=== PATIENT | female | born 1990 | race Caucasian/White ===

== ENCOUNTER 2017-11-17 23:46 | Emergency (ER) | payer OTHER ==
[2017-11-17 23:57] VITALS: RESP 18
--- NOTE | 2017-11-18 00:54 | ED PDOC ---
HPI: Female Pain Time Seen by Provider: 11/18/17 00:36 Chief Complaint (Nursing): Female Genitourinary Chief Complaint (Provider): ; vaginal spotting History Per: Patient, Family History/Exam Limitations: no limitations Onset/Duration Of Symptoms: Hrs (3) Quality Of Discomfort: Cramping, "Pain" Additional Complaint(s): 27 y/o female, approximately 6 weeks gestation, presents for evaluation of vaginal spotting x 3 hours. Denies fever, nausea/vomiting, chest pain, shortness of breath, palpitations, abdominal pain, changes in bowel movements, urinary symptoms. Abnormal Vaginal Bleeding: Yes Last Menstral Period: 09/27/17 : 2 Para: 1 Past Medical History Reviewed: Historical Data, Nursing Documentation, Vital Signs Vital Signs: Last Vital Signs Temp 97.9 F 11/17/17 23:50 Pulse 68 11/17/17 23:50 Resp 18 11/17/17 23:50 BP 118/71 11/17/17 23:50 Pulse Ox 99 11/17/17 23:50 - Medical History PMH: No Chronic Diseases - Surgical History Surgical History: Cholecystectomy - Family History Family History: States: No Known Family Hx - Living Arrangements Living Arrangements: With Family - Home Medications Home Medications: Ambulatory Orders Medication Instructions Recorded Nitrofurantoin Macrocrystals 100 mg PO BID #13 cap 11/18/17 [Macrobid] - Allergies Allergies/Adverse Reactions: Allergies Allergy/AdvReac Type Severity Reaction Status Date / Time No Known Allergies Allergy Verified 11/17/17 23:49 Review of Systems ROS Statement: Except As Marked, All Systems Reviewed And Found Negative Genitourinary Female: Positive for: Vaginal Bleeding, Pelvic Pain Physical Exam - Reviewed Nursing Documentation Reviewed: Yes Vital Signs Reviewed: Yes - Physical Exam Appears: Positive for: Well, Non-toxic, No Acute Distress Head Exam: Positive for: ATRAUMATIC, NORMAL INSPECTION, NORMOCEPHALIC Skin: Positive for: Normal Color Eye Exam: Positive for: Normal appearance ENT: Positive for: Normal ENT Inspection Cardiovascular/Chest: Positive for: Regular Rate, Rhythm Respiratory: Positive for: Normal Breath Sounds Gastrointestinal/Abdominal: Positive for: Bowel Sounds, Soft, Tenderness (LLQ di [place]) Pelvic Exam: Positive for: External Exam Normal, No Cerv. Motion Tender, Blood (pink discharge vaginal vault), Other (exam music video producer Fiorella nutrition technician). Negative for: Active Bleeding Back: Positive for: Normal Inspection Extremity: Positive for: Normal ROM Neurologic/Psych: Positive for: Alert, Oriented (x3) - Laboratory Results Result Diagrams: 11/18/17 01:05 11/18/17 01:05 - ECG O2 Sat by Pulse Oximetry: 99 - Progress ED Course And Treament: labs, urine, u/s USArad impression: Single viable intrauterine , 7 weeks 3 days. No acute abnormality Patient educated on findings, discharged with rx Macrobid (dose given in ED) Advised follow up Coat Finisher 2-3 days Return precautions given Disposition - Clinical Impression Clinical Impression: Urinary tract infection, Vaginal bleeding during - Patient ED Disposition Is Patient to be Admitted: No Counseled Patient/Family Regarding: Studies Performed, Diagnosis, Need For Followup, Rx Given - Disposition [facility] Disposition: Routine/Home Disposition Time: 03:25 Condition: IMPROVED Prescriptions: Nitrofurantoin Macrocrystals [Macrobid] 100 mg PO BID #13 cap Instructions: Urinary Tract Infections in Adults, Bleeding With Print Language: OMANI
[2017-11-18 01:40] LABS: BASO % 0.2 % (0.0-2.0); EOS # 0.1 K/uL (0.0-0.7); EOS % 0.9 % (0.0-4.0); HEMOGLOBIN 13.2 g/dL (12.0-16.0); LYMPH # 2.1 K/uL (1.0-4.3); LYMPH % 32.3 % (20.0-40.0); MEAN CELL VOLUME 91.5 fl (81.0-99.0); MEAN CORPUSCULAR HEMOGLOBIN 31.2 pg (27.0-31.0); MEAN CORPUSCULAR HGB CONC 34.1 g/dL (33.0-37.0); MEAN PLATELET VOLUME 8.6 fl (7.2-11.7); MONO # 0.7 K/uL (0.0-0.8); MONO % 10.2 % (0.0-10.0); NEUT # 3.8 K/uL (1.8-7.0); NEUT % 56.4 % (50.0-75.0); NRBC % 0.1 % (0.0-0.0); RBC 4.23 Mil/uL (3.80-5.20); RED CELL DISTRIBUTION WIDTH 13.3 % (11.5-14.5); WHITE BLOOD COUNT 6.7 K/uL (4.8-10.8)
[2017-11-18 01:44] LABS: SQUAMOUS EPITHIAL 6 /hpf (0-5); URINE BACTERIA RARE (<OCC); URINE BILIRUBIN NEGATIVE (NEGATIVE); URINE BLOOD LARGE (NEGATIVE); URINE CLARITY SLIGHTY-CLOUDY (Clear); URINE COLOR YELLOW (YELLOW); URINE GLUCOSE (UA) NEG (Normal); URINE LEUKOCYTE ESTERASE MOD Leu/uL (Negative); URINE PROTEIN NEGATIVE (NEGATIVE); URINE UROBILINOGEN 0.2-1.0 mg/dL (0.2-1.0)
[2017-11-18 02:06] LABS: ALB/GLOB RATIO 1.3 (1.0-2.1); ALBUMIN 3.9 g/dL (3.5-5.0); ALT/SGPT 18 U/L (9-52); AST/SGOT 19 U/L (14-36); BLOOD UREA NITROGEN 10 mg/dl (7-17); GFR NON-AFRICAN AMERICAN > 60
[2017-11-18 03:46] VITALS: BP 102/60; PULSE 62; TEMP 98.4; O2SAT 98
--- NOTE | 2017-11-18 12:16 | US ---
Date of service: 11/18/2017 PROCEDURE: First trimester ultrasound HISTORY: , bleeding B-HCG results are pending COMPARISON: None TECHNIQUE: Transvaginal only. Real -time technique with 2D, duplex and color Doppler FINDINGS: LMP: 09/27/2017. Prior examinations from the current : None TECHNIQUE: Real-time 2D imaging, duplex and color Doppler. FINDINGS: Cardiac activity: Present Rate: 158 BPM Measurements: [place] rump length: 1.19 cm Gestational age based on CRL 7 weeks 3 days Gestational age 6 weeks 6 days based on gestational sac measurement 2.32 cm Gestational age derived from LMP: 7 weeks 3 days ANUP based on LMP: 07/04/2018 ANUP based on biometry: 07/06/2018 Gestational concordance documented Yolk sac identified Cervix: No Cervical abnormalities: Negative examination for cervical dilatation or effacement. Closed cervix measuring 3.41 cm Subchorionic hemorrhage: None UTERUS: 4.7 x 4.8 x 8.6 cm. ADNEXA: Right: 2.6 x 2.2 x 2.7 cm. Normal Doppler arterial waveform documented. Left: 0.4 x 2.4 x 2.5 cm. Simple cyst 1.4 x 1.5 x 1.6 cm. Normal Doppler arterial waveform documented Fluid in the cul-de-sac: None. IMPRESSION: 7 weeks 1 day live intrauterine gestation. Gestational concordance documented. Concordant results (preliminary interpretation) provided by NANCY HALL. Procedure Completed: 01:17. Preliminary Report: Dictated and Authenticated: 02:44. Final Interpretation: 12:13.
== END 2017-11-18 03:47 | disposition home or self-care (01) ==
LOC: H.ER 23:46
DX: O23.41 Unspecified infection of urinary tract in pregnancy, first trimester (principal); Z3A.01 Less than 8 weeks gestation of pregnancy; O20.9 Hemorrhage in early pregnancy, unspecified

== ENCOUNTER 2018-06-13 08:33 | Inpatient (IN) | payer MEDICAID, SELFPAY ==
[2018-06-13 10:20] VITALS: BMI 31.1
[2018-06-13] MEDS ORDERED: Lactated Ringer's 1,000 ML IV ONE (10:20)
[2018-06-13] MEDS ORDERED: Oxytocin 30 UNIT in NS 500 ml 30 UNITS/500 ML BAG IV ONE ×2 (10:29→14:15)
[2018-06-13] MEDS ORDERED: OXYTOCIN/0.9 % NS 20 UNIT/1,000 ML BAG IV SCH (10:30)
[2018-06-13 10:58] LABS: BASO % 0.2 % (0.0-2.0); EOS % 0.3 % (0.0-4.0); HEMOGLOBIN 13.8 g/dL (12.0-16.0); LYMPH # 2.4 K/uL (1.0-4.3); LYMPH % 28.2 % (20.0-40.0); MEAN CELL VOLUME 91.1 fl (81.0-99.0); MEAN CORPUSCULAR HEMOGLOBIN 30.4 pg (27.0-31.0); MEAN CORPUSCULAR HGB CONC 33.4 g/dL (33.0-37.0); MEAN PLATELET VOLUME 9.8 fl (7.2-11.7); MONO # 0.6 K/uL (0.0-0.8); MONO % 6.7 % (0.0-10.0); NEUT # 5.4 K/uL (1.8-7.0); NEUT % 64.6 % (50.0-75.0); NRBC % 0.1 % (0.0-0.0); RBC 4.52 Mil/uL (3.80-5.20); RED CELL DISTRIBUTION WIDTH 13.9 % (11.5-14.5); WHITE BLOOD COUNT 8.3 K/uL (4.8-10.8)
[2018-06-13] MEDS ORDERED: Lactated Ringer's 1,000 ML IV SCH ×2 (11:00→15:00)
[2018-06-13] MEDS ORDERED: Penicillin G 5 Million Unit Vial IVPB ONE (11:02)
--- NOTE | 2018-06-13 13:30 | OBADHP ---
Datetime: 06/13/2018 13:20 Presentation-Admit: Vertex FHR - Baseline A Provider: 120 Contraction Comments Provider: 2-5m Pool Provider: Negative NICHD Variability Prov Fetus A: Moderate 6-25bpm NICHD Accel Fetus A IP Provider: 15X15 FHR Category Provider Fetus A: Category I NICHD Decel Fetus A IP Provider: None Dilatation, Provider: 7 Effacement, Provider: 100 Station, Provider: 0 Datetime: 06/13/2018 10:47 Pelvic Type - PN: Adequate Extremities - PN: Normal Abdomen - PN: Normal Back - PN: Normal Breast - PN: Not Done Lungs - PN: Normal Heart - PN: Normal Thyroid - PN: Not Done Neurologic - PN: Normal HEENT - PN: Normal General - PN: Normal Membranes, Provider: Intact Comments, ACOG Physical Exam: General: NAD Chest: RRR, S1S2 present Lungs: CTAB, No rales, wheezing Abdomen: Gravid, NT, BS+ SSE: No gross pooling, No active bleeding, Bloody show with thick mucus discharge present. SVE: 3/80%/-2 Ext: No pedal edema IP Hx Assessment: The History has been Reviewed and is Current Vital Signs Provider: Reviewed; Within Normal Limits IP Chief Complaint: Uterine contractions; Maternal discomfort Genitourinary Exam: Normal DTRs - PN: Normal EGA AdmitDate IP: 37.0 IP Adm Impression: Term, intrauterine IP Admit Plan: Admit to unit; Initiate labor protocol Datetime: 06/13/2018 10:34 Admit Comment, IP Provider: 28 y/o , 37.0 wks based on LMP with ANUP of 07/04/18 presents to [facility] complaining of CTx, Vaginal spotting and abdominal pain. Symptoms started 7 am today. CTx Q5 to 10 mi ns, painful, with abdominal pain with pelvic pressure. Vaginal spotting is pinkish to red with thick mucus discharge. Endorses good FM. Denies LOF. Denies any other complains. Care: [facility], Dr. Levi, + GBS urine Cx in 1st trimester Rx with Macrobid 14 days. Last US , Cephalix, FHR 152, Posterior plecenta, No previa, ROSAURA normal, EFW 2167gm. OBHx: at 37 weeks in 2007, No complications PMHx: Denies PSHx: Cholecystectomy Allergies: NKDA F/H : Denies SOcial Hx: Denies ETOH, smoking, drugs Meds: PNVs PE: General: NAD Chest: RRR, S1S2 present Lungs: CTAB, No rales, wheezing Abdomen: Gravid, NT, BS+ SSE: No gross pooling, No active bleeding, Bloody show with thick mucus discharge present. SVE: 3/80%/-2 Ext: No pedal edema A/P: 28 y/o , 37.0 wks based on LMP with ANUP of 07/04/18 admitted for painful utering contract ions with discomfort, 37 weeks IUP. Patient is GBS Positive, HIV NR, RPR Neg, Rubella Nonimmune, HBsAg Neg. - [place] and EFM - Regular moderate contractions, NST reactive category 1 tracing as above - 3/80/-2 cervix - admite to unit for labor. Case discussed with Dr. Rm Maria MD, PGY1 OB Hospitalist on-call: Pt seen and examined; agree with PGY1 note. MIKA
--- NOTE | 2018-06-13 13:39 | OBPN ---
Datetime: 06/13/2018 13:20 IP Progress Impression Other: Active phase of labor/GBS+ IP Progress Impression: Normal progression of labor IP Progress Plan: Continue present management; Anticipate Vaginal Delivery Pool Provider: Negative Contraction Comments Provider: 2-5m FHR - Baseline A Provider: 120 Presentation-Admit: Vertex IP Progress Note Comment: She feels CTX; ren relived with nitrous when she used it. she was given o ne dose of Ab and next dose 15:00pm. SVE 7cm/100/0 Activ phase of labor / GBS+ / Rubella Non Immune PLAN: observe labor progress - anticipate NICHD Accel Fetus A IP Provider: 15X15 FHR Category Provider Fetus A: Category I NICHD Variability Prov Fetus A: Moderate 6-25bpm Dilatation, Provider: 7 Effacement, Provider: 100 Station, Provider: 0 NICHD Decel Fetus A IP Provider: None Datetime: 06/13/2018 10:47 Membranes, Provider: Intact Vital Signs Provider: Reviewed; Within Normal Limits
[2018-06-13] MEDS ORDERED: Lidocaine 1% Inj (20ml) ONE (14:01)
[2018-06-13] MEDS ORDERED: Benzocaine/Menthol SPRAY TOP PRN ×2 (14:45→17:19)
[2018-06-13] MEDS ORDERED: Oxycodone/Acetaminophen 5/325 mg Tab PO PRN ×4 (14:45→17:19)
--- NOTE | 2018-06-14 11:05 | OBPPN ---
Datetime: 06/14/2018 07:07 PP Pain Prov: Within normal limits PP Nausea Prov: Denies PP Flatus Prov: Yes PP BM Prov: No PP Breasts Prov: Not Done PP Heart Prov: Normal PP Lungs Prov: Normal PP Abdomen/Uterus Prov: Normal PP Lochia Prov: Normal PP Vulva/Perineum Prov: Normal PP CVA Tenderness Prov: Normal PP Extremities Prov: Normal PP Impression Prov: Normal progression PP Plan Prov: Continue present management PP Progress Note Prov: 28 y/o female on PPD1. Seen and examined at bedside.Lochia same as mens es, passing gas, but no BM. Denies difficulties w/ . Tolerat regular diet ROS: all systems reviewed and negative except per HPI VS: stable GEN: NAD Cardio: RRR, S1S2 present, no murmurs noted Lungs: clear breath sounds b/l, no wheezing Abdomen: BS+, soft, non-tender. Uterus is firm and at the level of the umbilicus. EXT: No erythema/tenderness/swelling NEURO/PSYCH: AAOx3, no grossly focal deficits, preserved affect and mood. A/P: 28 YO PPD1 s/p NVD -Normal progression -encouraged ambulation -Motrin 600mg po q6h for pain as per pain scale -Senakot 17.2mg po QHS -Encourage -Continue vit -WIll discharge on 06/15/18 [place] PGy1 Case discussed with attending Vital Signs Provider PP: Reviewed; Within Normal Limits
--- NOTE | 2018-06-14 13:26 | OBDS ---
DELIVERY PERSONNEL Delivery Doctor: Antonio Mauricio MD Prestressed Concrete Laborer: Ele Mera RN Resident: matthew salguero MATERNAL INFORMATION Delivery Anesthesia: None Medications in Delivery: 30 pitocin in 500 ns after placenta Estimated Blood Loss (ml): 300 Placenta Cultured: No Maternal Complications: None Other Maternal Complications: 37 weeks in labor intact Provider Comments: Delivered live baby girl at 14:08, SVITLANA. the baby was bulb suctioned, then transfe rred to maternal chest with delayed cord clamping. The cord was clamped and cut [address] blood was obtained and sent to the lab. The placenta was delivered intact at 14:15 with EBL of 30 0 cc. Second-degree perineal laceration and 1st degree vaginal laceration which was repaired with 2-0 Vi cryl Rapide. Mother tolerated procedure well w/o any complications. Apgars score 9/9, weighing 2915 gm. Addendum: I was present and participated in entire delivery. Agree with above note. Luly LABOR SUMMARY EDC: 07/04/2018 00:00 No. Babies in Womb: 0 Attempted: No Labor Anesthesia: None LABOR INFORMATION Reason for Induction: Not Applicable Onset of Labor: 06/13/2018 07:00 Complete Dilatation: 06/13/2018 14:00 Other Ripening Agents: no Oxytocin: none Group B Beta Strep: Positive Antibiotics # of Doses: pen.g 5 million x1 at 11:00 am Steroids Given: None Reason Steroids Not Administered: Not Applicable MEMBRANES Membranes Rupture Method: Spontaneous Rupture of Membranes: 06/13/2018 14:00 Length of Rupture (hrs): 0.13 Amniotic Fluid Color: Clear Amniotic Fluid Amount: Moderate Amniotic Fluid Odor: Normal STAGES OF LABOR Stage 1 hrs: 7 Stage 1 min: 0 Stage 2 hrs: 0 Stage 2 min: 8 Stage 3 hrs: 0 Stage 3 min: 7 Total Time in Labor hrs: 7 Total Time in Labor min: 15 VAGINAL DELIVERY Episiotomy: None Laceration Extension: Second Degree Laceration Type: Perineal; Vaginal Laceration Repair: Yes Laceration Repair Note: Second-degree midline perineal laceration and 1st degree left vaginal wall l aceration which was repaired with 2-0 Vicryl Rapide. Hemostasis achieved. Initial Vag Sponge Count: 15 Final Vag Sponge Count: 15 Initial Vag Sharps Count: 2 Final Vag Sharps Count: 2 Sponge Count Correct: Yes Sharps Count Correct: Yes Count Comment: all count correct BABY A INFORMATION Delivery Date/Time: 06/13/2018 14:08 Method of Delivery: Vaginal Born in Route : Yes : N/A Forceps: N/A Vacuum Extraction: N/A Shoulder Dystocia : No SHOULDER DYSTOCIA BABY A Delivery Date/Time: 06/13/2018 14:08 PRESENTATION/POSITION BABY A Presentation: Breech Cephalic Presentation: Vertex Breech Presentation: N/A PLACENTA INFORMATION BABY A Placenta Delivery Time : 06/13/2018 14:15 Placenta Method of Delivery: Spontaneous Placenta Status: Delivered SCORES BABY A Heart Rate 1 min: >100 bpm Resp Effort 1 min: Good Cry Reflex Irritability 1 min: Cough or Sneeze or Pulls Away Muscle Tone 1 min: Active Motion Color 1 min: Body [place], Extremities Blue Resuscitation Effort 1 min: Tactile Stimulation SCORE 1 MIN: 9 Heart Rate 5 min: >100 bpm Resp Effort 5 min: Good Cry Reflex Irritability 5 min: Cough or Sneeze or Pulls Away Muscle Tone 5 min: Active Motion Color 5 min: Body [place], Extremities Blue SCORE 5 MIN: 9 Heart Rate 10 min: >100 bpm Resp Effort 10 min: Good Cry Reflex Irritability 10 min: Cough or Sneeze or Pulls Away Muscle Tone 10 min: Active Motion Color 10 min: Completely [place] SCORE 10 MIN: 10 INFANT INFORMATION BABY A Gestational Age at Delivery: 37.0 Gestational Status: Term Infant Outcome : Liveborn Infant Condition : Stable Infant Sex: Female IDENTIFICATION/MEDS BABY A ID Band Number: [id number] ID Band Location: Left Leg; Left Arm WEIGHT/LENGTH BABY A Birthweight (gms): 2915 Weight (lb): 6 Infant Weight (oz): 7 Infant Length Inches: 18.00 Infant Length cms: 45.7 CORD INFORMATION BABY A No. Cord Vessels: 3 Nuchal Cord : N/A Nuchal Cord Other: none True Knot: none Cord pH Baby Arterial: no Infant Cord pH Baby Venous: no Cord Blood Taken: Yes Banking/Donate Info: none Infant Suction: Mouth ASSESSMENT BABY A Infant Complications: None Physical Findings at Delivery: Within Normal Limits Infant Respirations: Appears Normal Security Associate/ALS Called : No Infant Care By: baby assesst by dr montes at 15:40 Transferred To: Remains with Mother
--- NOTE | 2018-06-14 13:27 | OBDS ---
DELIVERY PERSONNEL Delivery Doctor: Antonio Mauricio MD Fuse Coiler: Ele Mera RN Resident: matthew salguero MATERNAL INFORMATION Delivery Anesthesia: None Medications in Delivery: 30 pitocin in 500 ns after placenta Estimated Blood Loss (ml): 300 Placenta Cultured: No Maternal Complications: None Other Maternal Complications: 37 weeks in labor intact Provider Comments: Delivered live baby girl at 14:08, SVITLANA. the baby was bulb suctioned, then transfe rred to maternal chest with delayed cord clamping. The cord was clamped and cut [address] blood was obtained and sent to the lab. The placenta was delivered intact at 14:15 with EBL of 30 0 cc. Second-degree perineal laceration and 1st degree vaginal laceration which was repaired with 2-0 Vi cryl Rapide. Mother tolerated procedure well w/o any complications. Apgars score 9/9, weighing 2915 gm. Addendum: I was present and participated in entire delivery. Agree with above note. Luly LABOR SUMMARY EDC: 07/04/2018 00:00 EDC: 07/04/2018 00:00 EDC: 07/04/2018 00:00 No. Babies in Womb: 0 Attempted: No Labor Anesthesia: None LABOR INFORMATION Reason for Induction: Not Applicable Onset of Labor: 06/13/2018 07:00 Complete Dilatation: 06/13/2018 14:00 Other Ripening Agents: no Oxytocin: none Group B Beta Strep: Positive Group B Beta Strep: Positive Antibiotics # of Doses: pen.g 5 million x1 at 11:00 am Steroids Given: None Reason Steroids Not Administered: Not Applicable MEMBRANES Membranes Rupture Method: Spontaneous Membranes Rupture Method: Spontaneous Rupture of Membranes: 06/13/2018 14:00 Rupture of Membranes: 06/13/2018 14:00 Length of Rupture (hrs): 0.13 Length of Rupture (hrs): 0.13 Amniotic Fluid Color: Clear Amniotic Fluid Color: Clear Amniotic Fluid Amount: Moderate Amniotic Fluid Amount: Moderate Amniotic Fluid Odor: Normal STAGES OF LABOR Stage 1 hrs: 7 Stage 1 min: 0 Stage 2 hrs: 0 Stage 2 min: 8 Stage 3 hrs: 0 Stage 3 min: 7 Total Time in Labor hrs: 7 Total Time in Labor min: 15 VAGINAL DELIVERY Episiotomy: None Laceration Extension: Second Degree Laceration Type: Perineal; Vaginal Laceration Repair: Yes Laceration Repair Note: Second-degree midline perineal laceration and 1st degree left vaginal wall l aceration which was repaired with 2-0 Vicryl Rapide. Hemostasis achieved. Initial Vag Sponge Count: 15 Final Vag Sponge Count: 15 Initial Vag Sharps Count: 2 Final Vag Sharps Count: 2 Sponge Count Correct: Yes Sharps Count Correct: Yes Count Comment: all count correct BABY A INFORMATION Delivery Date/Time: 06/13/2018 14:08 Method of Delivery: Vaginal Born in Route : Yes : N/A Forceps: N/A Vacuum Extraction: N/A Shoulder Dystocia : No SHOULDER DYSTOCIA BABY A Infant Delivery Date/Time: 06/13/2018 14:08 PRESENTATION/POSITION BABY A Presentation: Breech Cephalic Presentation: Vertex Breech Presentation: N/A PLACENTA INFORMATION BABY A Placenta Delivery Time : 06/13/2018 14:15 Placenta Method of Delivery: Spontaneous Placenta Status: Delivered SCORES BABY A Heart Rate 1 min: >100 bpm Resp Effort 1 min: Good Cry Reflex Irritability 1 min: Cough or Sneeze or Pulls Away Muscle Tone 1 min: Active Motion Color 1 min: Body [place], Extremities Blue Resuscitation Effort 1 min: Tactile Stimulation SCORE 1 MIN: 9 Heart Rate 5 min: >100 bpm Resp Effort 5 min: Good Cry Reflex Irritability 5 min: Cough or Sneeze or Pulls Away Muscle Tone 5 min: Active Motion Color 5 min: Body [place], Extremities Blue SCORE 5 MIN: 9 Heart Rate 10 min: >100 bpm Resp Effort 10 min: Good Cry Reflex Irritability 10 min: Cough or Sneeze or Pulls Away Muscle Tone 10 min: Active Motion Color 10 min: Completely [place] SCORE 10 MIN: 10 INFANT INFORMATION BABY A Gestational Age at Delivery: 37.0 Gestational Status: Term Infant Outcome : Liveborn Condition : Stable Sex: Female IDENTIFICATION/MEDS BABY A ID Band Number: [id number] ID Band Location: Left Leg; Left Arm WEIGHT/LENGTH BABY A Birthweight (gms): 2915 Weight (lb): 6 Infant Weight (oz): 7 Length Inches: 18.00 Length cms: 45.7 CORD INFORMATION BABY A No. Cord Vessels: 3 Nuchal Cord : N/A Nuchal Cord Other: none True Knot: none Cord pH Baby Arterial: no Infant Cord pH Baby Venous: no Cord Blood Taken: Yes Banking/Donate Info: none Suction: Mouth ASSESSMENT BABY A Infant Complications: None Physical Findings at Delivery: Within Normal Limits Infant Respirations: Appears Normal Valve Mechanic/ALS Called : No Care By: baby assesst by dr monets at 15:40 Transferred To: Remains with Mother
[2018-06-15 09:14] LABS: BASO % 0.4 % (0.0-2.0); EOS # 0.1 K/uL (0.0-0.7); EOS % 1.4 % (0.0-4.0); HEMOGLOBIN 12.1 g/dL (12.0-16.0); LYMPH # 2.3 K/uL (1.0-4.3); LYMPH % 26.1 % (20.0-40.0); MEAN CELL VOLUME 92.2 fl (81.0-99.0); MEAN CORPUSCULAR HEMOGLOBIN 31.4 pg (27.0-31.0); MEAN PLATELET VOLUME 9.9 fl (7.2-11.7); MONO # 0.4 K/uL (0.0-0.8); MONO % 4.9 % (0.0-10.0); NEUT % 67.2 % (50.0-75.0); NRBC % 0.1 % (0.0-0.0); RBC 3.86 Mil/uL (3.80-5.20); RED CELL DISTRIBUTION WIDTH 14.2 % (11.5-14.5); WHITE BLOOD COUNT 8.9 K/uL (4.8-10.8)
--- NOTE | 2018-06-15 09:59 | OBPPN ---
Datetime: 06/15/2018 07:50 PP Pain Prov: Within normal limits PP Nausea Prov: Denies PP Flatus Prov: Yes PP BM Prov: No PP Breasts Prov: Normal PP Heart Prov: Normal PP Lungs Prov: Normal PP Abdomen/Uterus Prov: Normal PP Lochia Prov: Normal PP Vulva/Perineum Prov: Not Done PP CVA Tenderness Prov: Not Done PP Extremities Prov: Normal PP C/S Incision Prov: Not Applicable PP Progress Prov: Normal PP Impression Prov: Normal progression PP Plan Prov: Continue present management PP Progress Note Prov: 28 y/o female on PPD2. Seen and examined at bedside. Pain well controlle d with pain medication. Lochia same as menses, passing gas, but no BM. Denies difficulties w/ breast feeding. Complains of bilateral breast pain w/o redness, or fever. Tolerating regular diet well w/o n ausea, vomiting. ROS: all systems reviewed and negative except per HPI VS: stable GEN: NAD Cardio: RRR, S1S2 present, no murmurs noted Lungs: clear breath sounds b/l, no wheezing Breast: No erythema, mild tenderness around nipple, [place] present in room. Abdomen: BS+, soft, non-tender. Uterus is firm and at the level of the umbilicus. EXT: No erythema/tenderness/swelling NEURO/PSYCH: AAOx3, no grossly focal deficits, preserved affect and mood. A/P: 28 YO PPD2 s/p NVD -Normal progression -encouraged ambulation -Motrin 600mg po q6h for pain as per pain scale -Senakot 17.2mg po QHS -Encourage -Continue vit - MMR vaccine today -Anticipated discharge today, 06/15/18. Gio Maria MD, PGY1 Case discussed with attending Patient seen and examined by me this am. Agree with above note. Patient for discharge home and fol low up for evaluation. IP PP Procedures: Rubella Vital Signs Provider PP: Reviewed; Within Normal Limits
--- NOTE | 2018-06-15 10:01 | OBDCSUM ---
Datetime: 06/15/2018 07:54 Discharged to, Provider[facility] Activity: Normal activity; May Shower Disch Instr Diet: Regular Discharge Instructions, Provider: Routine instructions given Discharge Diagnosis, Provider: Term Delivered Follow up in weeks, Provider: 4-6 weeks Disch Referrals: None Contraception discussed, Prov: Yes Disch Activity Restrictions: No exercising; No lifting; No sexual activity; Nothing in vagina - Inte rcourse, tampons, douche Discharge Comment, Provider: DISCHARGE NOTE 21 yo s/p on 06/13/18. EGA: 37.0 weeks Diagnosis: delivered no complications Summary of : GBS Bacteriuria. L_D summary: , no lacerations DOD: 06/13/18 @ 14:08 Sex: Female Weight: 2915 gm : 99 Feeding: breast summary: No complications during , Lochia is similar volume to menses. CBC on admission 13.8/41.2 Blood type: O+ MMR vaccine given on 06/15/18 DISCHARGE DATE D/C DATE: 06/15/18 DISCHARGE INSTRUCTIONS: -Encouraged -PNV 1 tab po q/day -Ibuprofen 600 mg 1 tab po q4-6h PRN mild pain # 20 -Ambulate with caution, nothing per vagina/sex for 4 weeks, no heavy lifting, avoid stairs, if exc essive bleeding or fever without relief from Ibuprofen go to ED - ED precautions: If excessive bleeding, pain that does not get relief, fever >100.4, palpitations , SOB, CP or other concerning symptom go to the ED. - PT was urged if feeling sad, mood swing, depression, neglect of baby, suicidal thoughts, homicid al thoughts go to ER or call 911 for help - F/U with Primary care doctor if have difficulty with breast feeding F/U at [facility] in 4-6 weeks for check up Gio Maria, PGY1 Contraception after Delivery: Not Planning to Use
[2018-06-15] MEDS ORDERED: Measles, Mumps, and Rubella 0.5 ML VIAL SC ONE (11:00)
[2018-06-15 17:40] VITALS: BP 133/71; PULSE 51; RESP 20; TEMP 97.8; O2SAT 99
== END 2018-06-15 12:30 | disposition home or self-care (01) | DRG 560 ==
LOC: H.EROB2 08:33 → H.L&D 08:59 → UNDOADMIN 10:20 → H.EROB2 10:36 → H.L&D 10:39 → H.OB/GYN 17:15
PROVIDERS: ADMIT Obstetrics & Gynecology; ATTEND Obstetrics & Gynecology
PROC: 10E0XZZ Delivery of Products of Conception, External Approach (ICD-10-PCS; principal; 2018-06-13)
PROC: 0KQM0ZZ Repair Perineum Muscle, Open Approach (ICD-10-PCS; 2018-06-13)
PROC: 4A1HXCZ Monitoring of Products of Conception, Cardiac Rate, External Approach (ICD-10-PCS; 2018-06-13)
PROC: 3E0234Z Introduction of Serum, Toxoid and Vaccine into Muscle, Percutaneous Approach (ICD-10-PCS; 2018-06-15)
DX: O70.1 Second degree perineal laceration during delivery (principal); O99.824 Streptococcus B carrier state complicating childbirth; Z37.0 Single live birth; Z3A.37 37 weeks gestation of pregnancy; Z23 Encounter for immunization